=== PATIENT | female | born 1950 | race Caucasian/White ===

== ENCOUNTER 2019-03-24 10:12 | Inpatient (IN) | payer OTHER ==
[~2019-03-24] VITALS: Ht 154.9 cm; Wt 79.4 kg
[2019-03-24 10:15] VITALS: BP 128/80
--- NOTE | 2019-03-24 10:17 | NUR ---
PATIENT AMBULATED TO BED 11.
--- NOTE | 2019-03-24 10:17 | NUR ---
[facility] EMT AT BEDSIDE FOR EKG
--- NOTE | 2019-03-24 10:17 | NUR ---
DR GEE AT BEDSIDE
--- NOTE | 2019-03-24 10:29 | NUR ---
68/F BIB . referred by supervisor bottle house cleaners for abnormal lab. ambulate with walker. hx of DM, appendectomy, hysterectomy. DENIES N/V/D; SKIN IS PINK/WARM/DRY; PT DENIES ANY FEVER, CP, SOB, OR COUGH AT THIS TIME; PATIENT STATES PAIN OF 0/10 AT THIS TIME. PATIENT POSITIONED FOR COMFORT; HOB ELEVATED; BEDRAILS UP X1; BED DOWN. ER MD MADE AWARE OF PT STATUS.
[2019-03-24] MEDS ORDERED: DONE5TAB6 PO ×2 (10:47→15:58)
[2019-03-24] MEDS ORDERED: ESCI10TA PO ×2 (10:47→15:58)
[2019-03-24] MEDS ORDERED: XALOS OP (10:47)
[2019-03-24] MEDS ORDERED: RISP0.5T3 PO ×2 (10:47→15:58)
[2019-03-24] MEDS ORDERED: CLON1TAB PO ×3 (10:47→15:58)
[2019-03-24] MEDS ORDERED: PRIM250T70 PO ×2 (10:47→15:58)
[2019-03-24] MEDS ORDERED: TRAM50TA1 PO ×2 (10:47→15:58)
[2019-03-24] MEDS ORDERED: CARB1TER9 PO ×2 (10:47→15:58)
[2019-03-24] MEDS ORDERED: DIT5 PO ×2 (10:47→15:58)
[2019-03-24] MEDS ORDERED: METF850T PO ×2 (10:47→15:58)
[2019-03-24] MEDS ORDERED: [UNRECOGNIZED DRUG - OTHER] PO ×2 (10:51→15:58)
[2019-03-24] MEDS ORDERED: PHE25S RC (10:51)
[2019-03-24] MEDS ORDERED: ASPI-1718 PO ×2 (10:51→15:58)
--- NOTE | 2019-03-24 10:52 | NUR ---
LAB AT BEDSIDE.
[2019-03-24 11:13] LABS: BASOPHILS # (AUTO) 0.1 K/uL (0.00-0.22); BASOPHILS % (AUTO) 0.8 % (0.0-2.0); EOSINOPHILS # (AUTO) 0.2 K/uL (0-0.4); EOSINOPHILS % (AUTO) 2.3 % (0.0-4.0); HEMATOCRIT 35.9 % (36-48); HEMOGLOBIN 11.9 g/dL (12.0-16.0); LYMPHOCYTES # (AUTO) 2.4 K/uL (2.5-16.5); LYMPHOCYTES % (AUTO) 30.6 % (20.5-51.1); MEAN CORPUSCULAR HEMOGLOBIN 31 pg (27-31); MEAN CORPUSCULAR HGB CONC 33 g/dL (33-37); MEAN CORPUSCULAR VOLUME 93.2 fL (80-94); MONOCYTES # (AUTO) 0.3 K/uL (0.8-1.0); MONOCYTES % (AUTO) 4.4 % (1.7-9.3); NEUTROPHILS # (AUTO) 4.9 K/uL (1.8-7.7); NEUTROPHILS % (AUTO) 61.9 % (42.2-75.2); PLATELET COUNT (AUTO) 281 K/uL (140-450); RED BLOOD CELL COUNT(AUTO) 3.86 MIL/uL (4.20-5.40); WHITE BLOOD COUNT (AUTO) 7.9 K/uL (4.8-10.8)
[2019-03-24] MEDS ORDERED: ASPIRIN 325 MG TAB PO ONE (11:25)
--- NOTE | 2019-03-24 11:29 | NUR ---
PT AMB WITH WALKER TO RESTROOM.
[2019-03-24 11:32] LABS: ANION GAP 13.4 (8-16); CARBON DIOXIDE 28.4 mmol/L (21-32); POTASSIUM 3.8 mmol/L (3.5-5.1)
[2019-03-24 11:42] LABS: ALBUMIN 3.4 g/dL (3.4-5.0); TOTAL BILIRUBIN 0.4 mg/dL (0.0-1.0)
[2019-03-24] MEDS: NACL 0.9% 1,000 ML IV SCH (11:49)
[2019-03-24] MEDS ORDERED: MORPHINE SULFATE 2 MG/ML SYR IVP PRN (11:50)
[2019-03-24] MEDS ORDERED: ACETAMINOPHEN 325 MG TAB PO PRN (11:50)
[2019-03-24] MEDS ORDERED: MEDICATION REC. PHARMACY CONS. 1 EA MISC MC PRN (11:50)
[2019-03-24] MEDS ORDERED: LORazepam 2 MG/ML VIAL IM/IVP PRN (11:50)
[2019-03-24] MEDS ORDERED: NITROGLYCERIN 0.4 MG TAB SL PRN (11:50)
[2019-03-24] MEDS ORDERED: HYDROcodone/APAP 5/325 MG 1 TAB TAB PO PRN (11:50)
[2019-03-24] MEDS ORDERED: DOCUSATE SODIUM 100 MG GELCAP PO PRN (11:50)
[2019-03-24] MEDS ORDERED: ONDANSETRON 4 MG/2 ML VIAL IM/IVP PRN (11:50)
[2019-03-24] MEDS ORDERED: MELATONIN 3 MG TAB PO PRN (11:50)
[2019-03-24 12:14] LABS: CREATINE KINASE MB 0.4 ng/mL (0-3.6)
[2019-03-24 12:38] LABS: PROTHROMBIN TIME 9.6 secs (10.8-13.4)
[2019-03-24 12:45] LABS: MAGNESIUM 1.7 mg/dL (1.8-2.4); PHOSPHORUS 2.9 mg/dL (2.5-4.9); THYROID STIMULATING HORMONE 0.76 uIU/mL (0.34-3.74)
[2019-03-24 12:48] VITALS: BP 123/49
--- NOTE | 2019-03-24 12:48 | NUR ---
RECEIVED BEDSIDE REPORT FROM CLARITZA BEARD. PATIENT ON TELE MONITOR AND STANDARD PRECAUTIONS IN PLACE. PATIENT AAOX4 AND ON ROOM AIR, NO DISTRESS NOTED. SKIN INTACT. PATIENT AMBULATES WITH WALKER AT BEDSIDE. PATIENT CONTINENT. IV ON L WRIST 22 G INFUSING NS AT 60, IV ASYMPTOMATIC PATENT AND INTACT. FALL RISK PROTOCOL IN PLACE. BED IN LOW POSITION, CALL LIGHT WITHIN REACH, SIDE RAILS X2 UP
--- NOTE | 2019-03-24 12:48 | NUR ---
Patient will be admitted to care of DR GUZMAN . Admited to TELE. Will go to room 128B. Belongings list completed. Report to TALAT JERRY.
[2019-03-24 12:59] LABS: APPEARANCE,URINE CLEAR (CLEAR); BILIRUBIN,URINE NEGATIVE (NEGATIVE); BLOOD, URINE 1+ (NEGATIVE); COLOR,URINE YELLOW (YELLOW); LEUKOCYTE ESTERASE ,URINE 1+ (NEGATIVE); NITRITE, URINE NEGATIVE (NEGATIVE); UGLUCOSE NEGATIVE (NEGATIVE)
--- NOTE | 2019-03-24 13:00 | NUR ---
PATIENT EATING CHICKEN SANDWICH, NO COMPLAINTS AT THIS TIME
[2019-03-24 13:07] LABS: RBC,URINE 0-5 /HPF (0-5)
[2019-03-24] MEDS ORDERED: MAG SULF 2000 MG/WATER PREMIX 50 ML IV SCH (15:00)
--- NOTE | 2019-03-24 15:00 | NUR ---
AT BEDSIDE, ON ROOM AIR, NO DISTRESS NOTED
--- NOTE | 2019-03-24 15:34 | NUR ---
DR. PACHECO STATED TO HOLD OFF ON ECHO AND SEE WHAT DR. STARK SUGGESTS.
[2019-03-24] MEDS ORDERED: INSULIN LISPRO SLIDING SCALE 100 UNITS/ML VIAL SUBQ PRN (15:40)
[2019-03-24] MEDS ORDERED: DEXTROSE 50% 50 ML SYR IVP PRN (15:40)
[2019-03-24] MEDS ORDERED: XALOS BOTH EYES (15:58)
[2019-03-24 16:00] VITALS: BP 108/47
[2019-03-24] MEDS: BLOOD GLUCOSE MONITORING 1 DEV DEV FS SCH ×2 (17:08→20:56)
--- NOTE | 2019-03-24 17:15 | NUR ---
PATIENT WATCHING TV, ON ROOM AIR, NO DISTRESS NOTED
--- NOTE | 2019-03-24 19:19 | NUR ---
BEDSIDE REPORT GIVEN TO CLARITZA JIMENES. PATIENT ENDORSED IN STABLE CONDITION
--- NOTE | 2019-03-24 19:30 | NUR ---
RECEIVED BEDSIDE REPORT FROM DAY SHIFT RN, PATIENT IN BED, ON RA, NO SIGNS OF DISTRESS, DENIES PAIN, V/S STABLE. WALKER AT BEDSIDE. LEFT WRIST 20G INFUSING NS AT 60 ML/HR. EXPLAINED PLAN OF CARE, WILL CONTINUE TO MONITOR.
[2019-03-24 20:00] VITALS: BP 110/70
--- NOTE | 2019-03-24 20:45 | NUR ---
NOTIFIED DR BERGER OF 2 DEGREE HEART BLOCK ON TELE MONITOR
[2019-03-24] MEDS ORDERED: METOPROLOL 25 MG TAB PO SCH (21:00)
[2019-03-24] MEDS ORDERED: LATANOPROST 0.005% OP 2.5 ML BTL BOTH EYES SCH (21:00)
[2019-03-24] MEDS ORDERED: CARBIDOPA/LEVODOPA 25/100 MG 1 TAB PO SCH (21:00)
--- NOTE | 2019-03-24 21:17 | NUR ---
XALATAN NOT AVAILABLE TO GIVE
[2019-03-24] MEDS: OXYBUTYNIN 5 MG TAB PO SCH (21:20)
[2019-03-24] MEDS: risperiDONE 1 MG TAB PO SCH (21:20)
[2019-03-24] MEDS: metFORMIN 850 MG TAB PO SCH (21:20)
[2019-03-24] MEDS: clonazePAM 0.5 MG TAB PO SCH (21:29)
[2019-03-25] VITALS: BP 100/46
--- NOTE | 2019-03-25 | NUR ---
V/S TAKEN BP 100/46 HR 57. NOTED 2 DEGREE AV BLOCK ON TELE MONITOR. PATIENT DENIES CHEST PAIN.
--- NOTE | 2019-03-25 03:07 | NUR ---
SLEEPING IN BED, NO SIGNS OF DISTRESS, WILL CONTINUE TO MONITOR.
[2019-03-25] MEDS: NACL 0.9% 1,000 ML IV SCH ×2 (03:58→20:52)
[2019-03-25 04:00] VITALS: BP 133/46
--- NOTE | 2019-03-25 04:45 | NUR ---
NOTIFIED DR BERGER THAT PATIENTS HR WENT DOWN TO 37.
[2019-03-25] MEDS: BLOOD GLUCOSE MONITORING 1 DEV DEV FS SCH ×4 (06:37→20:42)
--- NOTE | 2019-03-25 06:38 | NUR ---
PATIENT RESTING IN BED, HR WENT DOWN TO 35, 2 DEGREE HEART BLOCK ON TELE.
[2019-03-25 06:55] LABS: BASOPHILS # (AUTO) 0.1 K/uL (0.00-0.22); BASOPHILS % (AUTO) 0.7 % (0.0-2.0); EOSINOPHILS # (AUTO) 0.2 K/uL (0-0.4); EOSINOPHILS % (AUTO) 2.5 % (0.0-4.0); HEMATOCRIT 37.5 % (36-48); HEMOGLOBIN 12.3 g/dL (12.0-16.0); LYMPHOCYTES # (AUTO) 3.1 K/uL (2.5-16.5); LYMPHOCYTES % (AUTO) 37.5 % (20.5-51.1); MEAN CORPUSCULAR HEMOGLOBIN 30 pg (27-31); MEAN CORPUSCULAR HGB CONC 33 g/dL (33-37); MONOCYTES # (AUTO) 0.4 K/uL (0.8-1.0); MONOCYTES % (AUTO) 5.2 % (1.7-9.3); NEUTROPHILS # (AUTO) 4.4 K/uL (1.8-7.7); NEUTROPHILS % (AUTO) 54.1 % (42.2-75.2); PLATELET COUNT (AUTO) 283 K/uL (140-450); RED BLOOD CELL COUNT(AUTO) 4.04 MIL/uL (4.20-5.40); RED CELL DISTRIBUTION WIDTH 14.1 % (11.6-13.7); WHITE BLOOD COUNT (AUTO) 8.1 K/uL (4.8-10.8)
[2019-03-25 07:05] LABS: ANION GAP 9.1 (8-16); CARBON DIOXIDE 29.6 mmol/L (21-32); CREATININE 0.9 mg/dL (0.6-1.3); POTASSIUM 3.7 mmol/L (3.5-5.1)
[2019-03-25 07:12] LABS: MAGNESIUM 2.1 mg/dL (1.8-2.4); PHOSPHORUS 3.1 mg/dL (2.5-4.9)
--- NOTE | 2019-03-25 07:19 | NUR ---
ENDORSED PATIENT TO DAY SHIFT NURSE, PATIENT STABLE.
--- NOTE | 2019-03-25 07:20 | NUR ---
RECEIVED BEDSIDE REPORT FROM CLARITZA JIMENES. PATIENT ON TELE MONITOR AND STANDARD PRECAUTIONS IN PLACE. PATIENT AAOX4 AND ON ROOM AIR, NO DISTRESS NOTED. SKIN INTACT. WALKER AT BEDSIDE. FALL RISK PROTOCOL IN PLACE. L WRIST 20 G INFUSING NS AT 60, IV ASYMPTOMATIC PATENT AND INTACT. SEIZURE PRECAUTIONS IN PLACE. BED IN LOW POSITION, CALL LIGHT WITHIN REACH, SIDE RAILS X2 UP
[2019-03-25 07:45] LABS: CHOL/HDL RATIO 2.2 (1-4.5)
[2019-03-25 08:00] VITALS: BP 127/77
[2019-03-25] MEDS ORDERED: CARBIDOPA/LEVODOPA 50/200 MG TABER PO SCH ×2 (09:00)
[2019-03-25] MEDS ORDERED: ASPIRIN 81 MG TAB.CHEW PO SCH (09:00)
[2019-03-25] MEDS ORDERED: ESCITALOPRAM 20 MG TAB PO SCH (09:00)
[2019-03-25] MEDS ORDERED: DONEPEZIL 10 MG TAB PO SCH ×2 (09:00)
[2019-03-25] MEDS: ASPIRIN 81 MG TAB.CHEW PO SCH (09:49)
[2019-03-25] MEDS: OXYBUTYNIN 5 MG TAB PO SCH ×2 (09:51→20:50)
[2019-03-25] MEDS: metFORMIN 850 MG TAB PO SCH ×2 (09:51→20:50)
[2019-03-25] MEDS: ATORVASTATIN 20 MG TAB PO SCH (09:52)
[2019-03-25] MEDS: ESCITALOPRAM 20 MG TAB PO SCH (09:52)
[2019-03-25] MEDS: LISINOPRIL 5 MG TAB PO SCH (09:53)
[2019-03-25] MEDS: PRIMIDONE 50 MG TAB PO SCH (09:53)
[2019-03-25] MEDS: clonazePAM 0.5 MG TAB PO SCH ×2 (09:55→21:21)
--- NOTE | 2019-03-25 10:01 | NUR ---
ADMINISTERED SCHEDULED MEDS. PATIENT TOLERATED WELL
[2019-03-25] MEDS ORDERED: LATANOPROST 0.005% OP 2.5 ML BTL BOTH EYES SCH (11:02)
[2019-03-25 12:00] VITALS: BP 111/61
--- NOTE | 2019-03-25 12:20 | NUR ---
PATIENT SLEEPING, ON ROOM AIR, NO DISTRESS NOTED
--- NOTE | 2019-03-25 14:15 | NUR ---
PATIENT SLEEPING, ON ROOM AIR, NO DISTRESS NOTED
[2019-03-25 16:00] VITALS: BP 111/65
--- NOTE | 2019-03-25 16:35 | NUR ---
PATIENT WATCHING TV, NO DISTRESS NOTED ON ROOM AIR
--- NOTE | 2019-03-25 18:49 | NUR ---
NO COMPLAINTS AT THIS TIME, WILL CONTINUE TO MONITOR
--- NOTE | 2019-03-25 19:19 | NUR ---
BEDSIDE REPORT GIVEN TO CLARITZA JIMENES. PATIENT ENDORSED IN STABLE CONDITION
--- NOTE | 2019-03-25 19:30 | NUR ---
RECEIVED BEDSIDE REPORT FROM DAY SHIFT RN, PATIENT IN BED, AAOX4, ON ROOM AIR, NO SIGNS OF DISTRESS, DENIES PAIN, V/S STABLE. WALKER AT BEDSIDE. LEFT WRIST 20G INFUSING NS AT 60 ML/HR. EXPLAINED PLAN OF CARE, WILL CONTINUE TO MONITOR.
[2019-03-25 20:00] VITALS: BP 109/49
[2019-03-25] MEDS: risperiDONE 1 MG TAB PO SCH (20:50)
--- NOTE | 2019-03-25 20:50 | NUR ---
DUE MEDICATIONS GIVEN, PATIENT TOLERATED WELL
[2019-03-25] MEDS ORDERED: LEVODOPA PO SCH (21:00)
[2019-03-25] MEDS ORDERED: CARBIDOPA PO SCH (21:00)
--- NOTE | 2019-03-25 22:45 | NUR ---
PATIENT AMBULATED TO RESTROOM, STEADY GAIT
[2019-03-26] VITALS: BP 105/50
--- NOTE | 2019-03-26 | NUR ---
SLEEPING IN BED NO SIGNS OF DISTRESS
--- NOTE | 2019-03-26 02:05 | NUR ---
SLEEPING IN BED NO SIGNS OF PAIN OR DISTRESS.
[2019-03-26 04:00] VITALS: BP 99/66
--- NOTE | 2019-03-26 04:15 | NUR ---
BP 99/62 HR 66
[2019-03-26] MEDS: BLOOD GLUCOSE MONITORING 1 DEV DEV FS SCH ×2 (05:24→12:17)
[2019-03-26 07:15] LABS: BASOPHILS # (AUTO) 0.1 K/uL (0.00-0.22); BASOPHILS % (AUTO) 0.9 % (0.0-2.0); EOSINOPHILS # (AUTO) 0.2 K/uL (0-0.4); EOSINOPHILS % (AUTO) 3.4 % (0.0-4.0); HEMATOCRIT 36.9 % (36-48); LYMPHOCYTES # (AUTO) 2.1 K/uL (2.5-16.5); MEAN CORPUSCULAR HEMOGLOBIN 31 pg (27-31); MEAN CORPUSCULAR HGB CONC 33 g/dL (33-37); MEAN CORPUSCULAR VOLUME 94.1 fL (80-94); MONOCYTES # (AUTO) 0.3 K/uL (0.8-1.0); MONOCYTES % (AUTO) 4.7 % (1.7-9.3); NEUTROPHILS # (AUTO) 4.4 K/uL (1.8-7.7); PLATELET COUNT (AUTO) 258 K/uL (140-450); RED BLOOD CELL COUNT(AUTO) 3.92 MIL/uL (4.20-5.40); RED CELL DISTRIBUTION WIDTH 14.4 % (11.6-13.7); WHITE BLOOD COUNT (AUTO) 7.2 K/uL (4.8-10.8)
--- NOTE | 2019-03-26 07:22 | NUR ---
RECEIVED BEDSIDE REPORT FROM [employer]LLOP[employer] CASTING MACHINE REPAIRER RN, PATIENT IN BED, AAOX4, ON ROOM AIR, NO SIGNS OF DISTRESS, DENIES PAIN. WALKER AT BEDSIDE. LEFT WRIST 20G INFUSING NS AT 60 ML/HR. EXPLAINED PLAN OF CARE, WILL CONTINUE TO MONITOR PT CLOSELY. SEIZURE PRECAUTIONS IN PLACE. BED IN LOW POSITION, CALL LIGHT WITHIN REACH. WILL ROUND FREQUENTLY ON PT.
--- NOTE | 2019-03-26 07:28 | NUR ---
ENDORSED PATIENT TO DAY SHIFT NURSE, PATIENT STABLE.
[2019-03-26 07:51] LABS: ANION GAP 11.6 (8-16); CARBON DIOXIDE 26.6 mmol/L (21-32); CREATININE 0.9 mg/dL (0.6-1.3); POTASSIUM 4.2 mmol/L (3.5-5.1)
[2019-03-26 08:00] VITALS: BP 109/59
--- NOTE | 2019-03-26 08:43 | NUR ---
PATIENT HAS BEEN SCREENED AND CATEGORIZED MODERATE NUTRITION RISK. PATIENT WILL BE SEEN WITHIN 3-5 DAYS OF ADMISSION. 03/27/[address]
[2019-03-26] MEDS: metFORMIN 850 MG TAB PO SCH (09:05)
[2019-03-26] MEDS: ATORVASTATIN 20 MG TAB PO SCH (09:05)
[2019-03-26] MEDS: ESCITALOPRAM 20 MG TAB PO SCH (09:06)
[2019-03-26] MEDS: OXYBUTYNIN 5 MG TAB PO SCH (09:07)
[2019-03-26] MEDS: ASPIRIN 81 MG TAB.CHEW PO SCH (09:07)
[2019-03-26] MEDS: LISINOPRIL 5 MG TAB PO SCH (09:16)
[2019-03-26] MEDS: PRIMIDONE 50 MG TAB PO SCH (09:17)
[2019-03-26] MEDS: clonazePAM 0.5 MG TAB PO SCH (09:18)
--- NOTE | 2019-03-26 09:24 | NUR ---
ADMINISTERED MORNING MEDS TO PT. PT TOLERATED ALL MEDS WELL. WILL CONTINUE TO ROUND FREQUENTLY ON PT. BED IN LOWEST POSITION, CALL LIGHT WITHIN REACH. PT AT HER BEDSIDE.
--- NOTE | 2019-03-26 11:13 | NUR ---
PT CURRENTLY WATCHING TV WITH AT BEDSIDE. PT DENIES ANY PAIN OR DISTRESS. WILL CONTINUE TO ROUND FREQUENTLY.
[2019-03-26 12:00] VITALS: BP 108/57
--- NOTE | 2019-03-26 13:21 | NUR ---
PT RESTING IN BED WATCHING TV WITH AT BEDSIDE. PT IN [employer]. NO REPORTS OF PAIN OR DISTRESS. BED IN LOW POSITION, CALL LIGHT WITHIN REACH. WILL CONTINUE TO ROUND FREQUENTLY ON PT.
--- NOTE | 2019-03-26 14:05 | NUR ---
PT DISCHARGED HOME FOR SELF-CARE. PT DISCHARGE TEACHING WAS DONE ON IMPORTANCE OF FOLLOWING UP WITH CAUL FAT PULLER. ALSO INSTRUCTED PT TO FOLLOW MD ORDERS ON MED CONTINUATION. PT VERBALIZED UNDERSTANDING. PT SIGNED ALL DISCHARGE PAPERWORK. PT TOOK ALL DISCHARGE PAPERWORK ALONG WITH HER PERSONAL BELONGINGS ON D/C. PT IV REMOVED WITH TIP INTACT. WRIST BANDS REMOVED AND PLACED IN SHRED BIN. PT LEFT IN STABLE CONDITION ACCOMPANIED BY HER .
== END 2019-03-26 14:05 | disposition home or self-care (01) | DRG 206 ==
LOC: MED 10:12 → MMU 11:49
PROVIDERS: ADMIT General Practice; ATTEND General Practice
DX: M94.0 Chondrocostal junction syndrome [Tietze] (principal); N39.0 Urinary tract infection, site not specified; K21.9 Gastro-esophageal reflux disease without esophagitis; G40.909 Epilepsy, unspecified, not intractable, without status epilepticus; E83.42 Hypomagnesemia; E11.9 Type 2 diabetes mellitus without complications; G20 Parkinson's disease; F32.9 Major depressive disorder, single episode, unspecified; Z66 Do not resuscitate; F20.9 Schizophrenia, unspecified; H40.9 Unspecified glaucoma; F41.1 Generalized anxiety disorder; N32.81 Overactive bladder; E78.1 Pure hyperglyceridemia; I44.1 Atrioventricular block, second degree; Z88.0 Allergy status to penicillin; Z79.82 Long term (current) use of aspirin; Z79.899 Other long term (current) drug therapy; Z79.84 Long term (current) use of oral hypoglycemic drugs; Z90.49 Acquired absence of other specified parts of digestive tract; Z98.42 Cataract extraction status, left eye; Z98.41 Cataract extraction status, right eye; Z90.710 Acquired absence of both cervix and uterus; Z83.3 Family history of diabetes mellitus
CPT/HCPCS: 36415; 71045; 80048; 80053; 81001; 82550; 82553; 82948; 83036; 83690; 83735; 83880; 84100; 84443; 84484; 85025; 85610; 85730; 87081; 87086; 93005; 97161-GP; 99285; J0696; J1644; J1815; J3475; J7030; J7060; Q0092